=== PATIENT | female | born 1995 | race African-American/Black ===

== ENCOUNTER 2022-04-09 07:36 | Inpatient (IN) ==
[2022-04-09 07:58] LABS: Mucus,Urine Occasional /LPF (Occasional); RBC,Urine 1 /HPF (0-4); Squamous Epithelial Cell,Urine Few /HPF (0-10); Transitional Epi Cells,Urine Occasional /HPF (<1)
[2022-04-09 07:59] LABS: Bilirubin,Urine Negative (Negative); Blood, Urine Trace mg/dL (Negative); Glucose,Urine (UA) Negative (Negative); Ketones,Urine Negative (Negative); Nitrite,Urine Negative (Negative); Protein,Urine Negative (Negative); Urine Appearance Clear (Clear); Urine Color Yellow (Yellow); Urine Specific Gravity 1.016 (1.001-1.035); Urine pH 5.5 (4.5-8.0)
[2022-04-09] MEDS ORDERED: METHYLERGONOVINE 0.2 MG/1 ML AMP IM PRN (08:49)
[2022-04-09] MEDS ORDERED: CITRIC ACID/SODIUM CITRATE 30 ML UDCUP PO ONE (08:49)
[2022-04-09] MEDS ORDERED: CARBOPROST TROMETHAMINE 250 MCG/ML AMP IM PRN (08:49)
[2022-04-09] MEDS ORDERED: FAMOTIDINE 20 MG/2 ML VIAL IV ONE (08:49)
[2022-04-09] MEDS ORDERED: OXYTOCIN/LR 20 UNIT/1,000 ML BAG IV ONE ×2 (08:49→10:31)
[2022-04-09] MEDS ORDERED: TRANEXAMIC ACID 1,000 MG in SODIUM CHLORIDE 0.9% 100 ML IV PRN (08:49)
[2022-04-09] MEDS ORDERED: miSOPROStoL 200 MCG TABLET RECTAL PRN (08:49)
[2022-04-09] MEDS ORDERED: LACTATED RINGERS 1,000 ML IV PRN (08:49)
[2022-04-09] MEDS ORDERED: ceFAZolin 2,000 MG/50 ML DUPLEX IV ONE (08:49)
[2022-04-09] MEDS ORDERED: ePHEDrine 50 MG/ML VIAL IV PRN (08:50)
[2022-04-09] MEDS ORDERED: hydrOXYzine HCL 25 MG/1 ML VIAL IM PRN (08:50)
[2022-04-09] MEDS ORDERED: PROMETHAZINE 25 MG/1 ML VIAL IM ONE (08:50)
[2022-04-09] MEDS ORDERED: ONDANSETRON 4 MG/2 ML VIAL IV ONE (08:50)
[2022-04-09] MEDS ORDERED: diphenhydrAMINE 50 MG/1 ML VIAL IV PRN ×2 (08:50)
[2022-04-09] MEDS ORDERED: LACTATED RINGERS 250 ML IV PRN (08:50)
[2022-04-09] MEDS ORDERED: OXYTOCIN/LR 30 UNIT/1,000 ML BAG IV ONE ×2 (08:51→11:01)
[2022-04-09 09:09] LABS: Basophils % 0.1 % (0.0-0.8); Eosinophils # 0.1 10*3/uL (0.0-0.87); Eosinophils % 0.8 % (0.00-10.9); Hemoglobin 11.3 GM/DL (12.0-16.0); Immature Granulocytes % 0.4 %; Immature Granulocytes Absolute 0.03 #; Lymphocytes # 1.6 10*3/uL (1.4-4.0); Lymphocytes % 21.1 % (21.3-54.2); Mean Corpuscular HGB Conc 32.3 GM/DL (32-36); Mean Corpuscular Volume 89.3 FL (87-102); Mean Platelet Volume 9.7 FL (9.6-12.0); Monocytes # 0.6 10*3/uL (0.11-0.8); Monocytes % 8.1 % (1.7-12.7); Neutrophils % 69.5 % (38.7-73.9); Platelet Count 191 T/CUMM (130-400); Red Blood Count 3.92 MC/CUMM (3.8-5.5); White Blood Count 7.4 T/CUMM (4-12)
[2022-04-09] MEDS ORDERED: buprenorphine HCL 0.3 MG/ML VIAL ONE (09:22)
[2022-04-09] MEDS ORDERED: BUPIVACAINE SPINAL 0.75% 2 ML AMP SPINAL ONE (09:25)
[2022-04-09 09:31] LABS: Albumin 2.9 G/DL (3.4-5.0); Bilirubin,Total 0.4 MG/DL (0.20-1.00); Calcium 8.9 MG/DL (8.5-10.1); Osmolality,Calculated 272.7 MOS/KG (273-304); Potassium 3.4 MMOL/L (3.5-5.1); Total Protein 7.3 G/DL (6.4-8.2)
[2022-04-09] MEDS ORDERED: PHENYLEPHRINE 1 MG/10 ML SYRINGE IV ONE (10:01)
[2022-04-09] MEDS ORDERED: ONDANSETRON 4 MG/2 ML VIAL ONE (10:01)
[2022-04-09] MEDS ORDERED: DEXAMETHASONE 4 MG/1 ML VIAL ONE (10:01)
[2022-04-09] MEDS ORDERED: ACETAMINOPHEN INJ 1,000 MG/100 ML VIAL IV ONE (10:01)
[2022-04-09] MEDS ORDERED: KETOROLAC 30 MG/1 ML VIAL ONE (10:01)
[2022-04-09 10:07] LABS: Bacteria,Urine Occasional /HPF (Few); Bilirubin,Urine Negative (Negative); Blood, Urine Small mg/dL (Negative); Glucose,Urine (UA) Negative (Negative); Ketones,Urine Negative (Negative); Nitrite,Urine Negative (Negative); Protein,Urine Negative (Negative); RBC,Urine <1 /HPF (0-4); Urine Appearance CLEAR (Clear); Urine Color Straw (Yellow); Urine Specific Gravity 1.004 (1.001-1.035); Urine Urobilinogen < 2.0 eU/dL (<2.0)
[2022-04-09 10:13] LABS: Cord Arterial Blood HCO3 21.5 MMOL/L
[2022-04-09 10:15] LABS: Cord Venous Blood HCO3 21.8 MMOL/L; Cord Venous Blood PCO2 43.3 MMHG; Cord Venous Blood PO2 33.1
[2022-04-09] MEDS ORDERED: oxyCODONE/ACETAMINOPHEN 5-325 MG TABLET PO PRN (10:31)
[2022-04-09] MEDS ORDERED: RHO(D) IMMUNE GLOBULIN 300 MCG SYRINGE IM ONE (10:31)
[2022-04-09] MEDS ORDERED: HYDROCORTISONE 2.5% RECTAL CREAM 30 GM TUBE TOP PRN (10:31)
[2022-04-09] MEDS ORDERED: ONDANSETRON 4 MG/2 ML VIAL IV PRN (10:31)
[2022-04-09] MEDS ORDERED: LANOLIN 50% CREAM 0.3 OZ TUBE TOP PRN (10:31)
[2022-04-09] MEDS ORDERED: BISACODYL 10 MG SUPP RECTAL PRN (10:31)
[2022-04-09] MEDS ORDERED: MEASLES/MUMPS/RUBELLA VACCINE 0.5 ML VIAL SUBCUT ONE (10:31)
[2022-04-09] MEDS ORDERED: ACETAMINOPHEN 325 MG TABLET PO PRN (10:31)
[2022-04-09] MEDS ORDERED: BENZOCAINE 20%/MENTHOL 0.5% SPRAY 56 GM CAN TOP PRN (10:31)
[2022-04-09] MEDS ORDERED: WITCH HAZEL PADS 100/JAR TOP PRN (10:31)
[2022-04-09] MEDS ORDERED: DIPH/TET/ACEL PERT BOOSTER VACCINE 0.5 ML VIAL IM ONE (10:31)
[2022-04-09] MEDS ORDERED: NIFEdipine 10 MG CAPSULE PO ONE (12:23)
[2022-04-09] MEDS: KETOROLAC 30 MG/1 ML VIAL IV SCH ×2 (15:55→21:52)
[2022-04-09] MEDS: ACETAMINOPHEN 500 MG TABLET PO SCH (15:55)
[2022-04-09 17:46] LABS: Basophils % 0.1 % (0.0-0.8); Hematocrit 33.3 VOL% (35.7-47.0); Immature Granulocytes % 0.4 %; Immature Granulocytes Absolute 0.06 #; Lymphocytes % 6.7 % (21.3-54.2); Mean Corpuscular Volume 87.6 FL (87-102); Mean Platelet Volume 9.5 FL (9.6-12.0); Monocytes # 0.2 10*3/uL (0.11-0.8); Monocytes % 1.6 % (1.7-12.7); Neutrophils % 91.2 % (38.7-73.9); Platelet Count 180 T/CUMM (130-400); Red Cell Distribution Width 13.6 % (9.3-17.3); White Blood Count 14.6 T/CUMM (4-12)
[2022-04-09 19:14] LABS: Band Neutrophils 2 % (0-10); Lymphocytes 7 % (20-55); Reactive Lymphocytes Slight; Total Cells Counted 100
[2022-04-09 19:15] LABS: Platelet Estimate Normal
[2022-04-10] MEDS: DOCUSATE SODIUM 100 MG CAPSULE PO SCH ×3 (00:20→20:47)
[2022-04-10] MEDS: ACETAMINOPHEN 500 MG TABLET PO SCH (00:21)
[2022-04-10] MEDS: KETOROLAC 30 MG/1 ML VIAL IV SCH (03:35)
[2022-04-10 06:29] LABS: Basophils % 0.1 % (0.0-0.8); Hematocrit 30.6 VOL% (35.7-47.0); Immature Granulocytes % 0.8 %; Immature Granulocytes Absolute 0.16 #; Lymphocytes % 9.3 % (21.3-54.2); Mean Corpuscular HGB Conc 32.7 GM/DL (32-36); Mean Corpuscular Volume 89.2 FL (87-102); Mean Platelet Volume 9.3 FL (9.6-12.0); Monocytes # 1.2 10*3/uL (0.11-0.8); Monocytes % 5.9 % (1.7-12.7); Neutrophils % 83.9 % (38.7-73.9); Platelet Count 169 T/CUMM (130-400); Red Blood Count 3.43 MC/CUMM (3.8-5.5); Red Cell Distribution Width 13.9 % (9.3-17.3)
[2022-04-10 06:49] LABS: Hypochromia Slight; Lymphocytes 10 % (20-55); Microcytosis Slight; Platelet Estimate Adequate; Total Cells Counted 100
[2022-04-10] MEDS: METOCLOPRAMIDE 10 MG TABLET PO SCH ×3 (08:05→23:54)
[2022-04-10] MEDS: MULTIVITAMIN (PRENATAL) TABLET PO SCH (08:05)
[2022-04-10] MEDS: oxyCODONE/ACETAMINOPHEN 5-325 MG TABLET PO PRN ×3 (08:15→21:40)
[2022-04-10] MEDS: IBUPROFEN 800 MG TABLET PO PRN ×3 (08:16→21:40)
[2022-04-11] MEDS: MAGNESIUM HYDROXIDE SUSP 30 ML UDCUP PO PRN ×2 (00:13→08:48)
[2022-04-11] MEDS ORDERED: SIMETHICONE CHEW 80 MG TABLET PO PRN (03:19)
[2022-04-11] MEDS: oxyCODONE/ACETAMINOPHEN 5-325 MG TABLET PO PRN ×2 (05:22→12:19)
[2022-04-11] MEDS: IBUPROFEN 800 MG TABLET PO PRN ×2 (05:23→12:19)
[2022-04-11] MEDS: MULTIVITAMIN (PRENATAL) TABLET PO SCH (08:48)
[2022-04-11] MEDS: DOCUSATE SODIUM 100 MG CAPSULE PO SCH (08:48)
[2022-04-11] MEDS: METOCLOPRAMIDE 10 MG TABLET PO SCH (08:48)
[2022-04-11 09:32] VITALS: BP 150/85
== END 2022-04-11 13:45 | disposition home or self-care (01) | DRG 788 ==
LOC: N.LD 07:36 → N.OB 15:44
PROVIDERS: ADMIT Obstetrics & Gynecology; ATTEND Obstetrics & Gynecology
PROC: LDCSECT (ICD-10-PCS; 2022-04-09 09:45)